=== PATIENT | female | born 1995 | race Hispanic/Latino ===

== ENCOUNTER 2017-08-20 07:24 | Day surgery (SDC) | payer MEDICAID ==
[2017-08-20 07:54] VITALS: BMI 35.9
[2017-08-20 07:55] VITALS: BP 120/70; TEMP 97.5
--- NOTE | 2017-08-20 08:50 | PDOC.LDHP ---
Labor and Delivery H&P HPI: 21 year old H (No CS HX) here, as a patient of Dr Montgomery, at 39 weeks-40 weeks with irregular contractions. Bloody show reported. No large gusg of water , no fevers, good FM, no trauma, no Headaches nor vision changes. Patient concerned about inability to receive a tubal here if she delivers. States she "signed all the forms". Information given to her and her partner regarding elective sterilizations at [facility]. She desires to be released if not in active labor to re-present at the Med due to BTL availability here. Dr Montgomery made aware by me NOTE: this patient has a full H&P handwritten in the PAPER RECORD> Current gestational age (weeks): 39 (4 days) Dating criteria: last menstrual period Grav: 4 Para: 2 (SAB1) Current complications: none Abnormal US findings: No Current medications: none, pre-lg vitamins Previous surgical history: other (SAB 1) Allergies/Adverse Reactions: Allergies Allergy/AdvReac Type Severity Reaction Status Date / Time No Known Allergies Allergy Unverified 08/20/17 07:56 - Physical Exam Vital signs reviewed and normal: yes General: NAD Heart: RRR Lungs: CTAB Abdomen: gravid FHT: category 1 [place] contractions every: irregular about Q3-5 minutes on [place] - Vaginal Exam cm dilated: 2 Effacement: 75% Station: -1 - Assessment Threatened labor at term. Patient desires release to the Med as BTLs are not routinely performed here. I have discussed this with Dr Montgomery and our L&D john ( Genoveva Ponce). OK for outpatient care as not in active labor, no evidence of PIH, ROM, or compromise. DX: Latent labor. - Plan Plan: observation in L&D (See Assessment notes. Patient not in active labor. Pain tolerble with irregular ctx. OK for Med follow up.)
== END 2017-08-20 09:00 | disposition home or self-care (01) ==
LOC: L&D/OP 07:24
PROVIDERS: ATTEND Family Medicine
DX: O47.1 False labor at or after 37 completed weeks of gestation (principal); Z3A.39 39 weeks gestation of pregnancy; Z79.899 Other long term (current) drug therapy
CPT/HCPCS: 99282